=== PATIENT | male | born 1995 | race Caucasian/White ===

== ENCOUNTER 2018-07-13 20:30 | Observation (INO) | payer MEDICAID ==
[2018-07-13] MEDS: PIPER-TAZO 3.375 GM IV (PMX) 100 ML IVPB (22:57)
[2018-07-13] MEDS: morphine 4 MG/ML VIAL IV (22:57)
[2018-07-13] MEDS: ONDANSETRON 4 MG INJ IV (22:57)
[2018-07-13] MEDS: SODIUM CHLORIDE 0.9% 1L BAG IV* (22:58)
[2018-07-13 23:03] LABS: ADD MAN DIFF? NO
[2018-07-13 23:07] LABS: WHITE BLOOD COUNT 22.2 10^3/ul (4.8-10.8)
[2018-07-13 23:07] LABS: ABNORMAL IP MESSAGE 1; BASOPHIL # 0.1 10^3/ul (0.0-0.1); BASOPHILS % 0.3 % (0.0-2.0); EOSINOPHILS % 0.2 % (0.0-7.0); HEMATOCRIT 46.4 % (42.0-52.0); HEMOGLOBIN 15.4 g/dl (14.0-18.0); LYMPHOCYTES # 2.3 10^3/ul (0.8-2.9); LYMPHOCYTES % 10.4 % (15.0-51.0); MEAN CORPUSCULAR HEMOGLOBIN 30.1 pg (29.0-33.0); MEAN CORPUSCULAR HGB CONC 33.2 g/dl (32.0-37.0); MEAN CORPUSCULAR VOLUME 90.6 fl (82.0-101.0); MEAN PLATELET VOLUME 10.1 fl (7.4-10.4); MONOCYTE # 1.9 10^3/ul (0.3-0.9); MONOCYTES % 8.5 % (0.0-11.0); NEUTROPHIL # 17.8 10^3/ul (1.6-7.5); PLATELET COUNT 302 10^3/UL (140-415); POSITIVE DIFF @See below; RED BLOOD COUNT 5.12 10^6/ul (4.70-6.10); RED CELL DISTRIBUTION WIDTH 12.1 % (11.5-14.5)
[2018-07-13] MEDS: DEXAMETHASONE 10 MG/ML 1 ML INJ IV (23:09)
[2018-07-13 23:20] LABS: ADD UMIC YES; UR ASCORBIC ACID 20 mg/dL (NEGATIVE); UR BILIRUBIN (Dip) 2+ mg/dL (NEGATIVE); UR BLOOD (Dip) NEGATIVE (NEGATIVE); UR CLARITY CLEAR (CLEAR); UR COLOR AMBER (YELLOW); UR GLUCOSE (Dip) NEGATIVE (NEGATIVE); UR KETONES (Dip) 2+ mg/dL (NEGATIVE); UR LEUKOCYTE ESTERASE (Dip) NEGATIVE Leu/ul (NEGATIVE); UR MUCUS MANY /HPF (NONE SEEN); UR NITRITE (Dip) NEGATIVE (NEGATIVE); UR RBC 26 /HPF (0-5); UR SPECIFIC GRAVITY (Dip) 1.043 (1.003-1.030); UR TOTAL PROTEIN (Dip) 2+ mg/dl (NEGATIVE); UR UROBILINOGEN (Dip) 1+ mg/dL (NEGATIVE); UR WBC 8 /HPF (0-5)
[2018-07-13 23:23] LABS: INR 1.19; PROTIME 15.3 Sec (11.9-14.9); PT RATIO 1.2
[2018-07-13 23:24] LABS: PARTIAL THROMBOPLASTIN TIME 33.5 Sec (23.0-35.0)
[2018-07-13 23:27] LABS: ANION GAP 17 (5-13); BLOOD UREA NITROGEN 19 mg/dl (7-20); CALCIUM 9.8 mg/dl (8.4-10.2); CARBON DIOXIDE 24 mmol/L (21-31); CHLORIDE 102 mmol/L (97-110); CREATININE 0.94 mg/dl (0.61-1.24); Estimated GFR > 60 mL/min (>60); GLUCOSE 90 mg/dl (70-220); POTASSIUM 3.8 mmol/L (3.5-5.1); SODIUM 143 mmol/L (135-144)
[2018-07-13 23:38] LABS: TROPONIN-I < 0.012 ng/ml (0.000-0.120)
[2018-07-14] MEDS ORDERED: ACETAMINOPHEN 325 MG TAB PO (01:00)
[2018-07-14] MEDS ORDERED: NACL 0.9% 3 ML SYG IV (01:00)
[2018-07-14] MEDS ORDERED: ONDANSETRON 4 MG INJ IV ×2 (01:00)
[2018-07-14] MEDS: SOD CHLORIDE 0.9% 1,000 ML IV ×2 (01:03→10:40)
[2018-07-14] MEDS: morphine 2 MG INJ IV (01:03)
[2018-07-14] MEDS: CLINDAMYCIN 600 MG/D5W (PMX) 50 ML IVPB ×3 (04:02→15:00)
[2018-07-14] MEDS ORDERED: AMPICILLIN/SULB 3 GM/NS (PMX) 100 ML IVPB (06:00)
== END 2018-07-14 14:48 | disposition home or self-care (01) ==
LOC: E/R 20:30 → PP2 07-14 00:36
DX: J36 Peritonsillar abscess (principal)
CPT/HCPCS: 36415; 71045; 80048; 81001; 83605; 84484; 85025; 85610; 85730; 87040; 87070; 87086; 93005; 96365; 96375; 99285-25; G0378